=== PATIENT | male | born 1975 | race Hispanic/Latino ===

== ENCOUNTER → 2019-07-01 15:49 | Outpatient (CLI) | payer OTHER, SELFPAY ==
--- NOTE | 2019-07-01 | DI.US.S_ITS ---
PROCEDURE: US ABDOMEN LIMITED INDICATIONS: FATTY LIVER, ELEV LFT'S TECHNIQUE: Real-time focused scanning was performed of the abdomen, with image documentation. COMPARISON: None. FINDINGS: The liver demonstrates normal size. The liver demonstrates generalized increased echogenicity. This decreases ultrasound sensitivity for detection of hepatic masses. No findings of gallstones or sludge are seen. The gallbladder wall is not thickened, measuring 3 mm or less. No specific pericholecystic fluid is seen. The sonographic Hernández sign is negative. There is no biliary dilatation, the common bile duct measures 4 mm. The visualized pancreas is unremarkable. IMPRESSION: Fatty liver infiltration is seen, which is consistent with a given history. The gallbladder demonstrates a normal sonographic appearance. No biliary dilatation is seen. Dictated by: Joseph Foster M.D. on 07/02/2019 at 10:12 Approved by: Joseph Foster M.D. on 07/02/2019 at 10:13
== END ==
PROVIDERS: Visit Provider Physician Assistant
DX: K76.0 Fatty (change of) liver, not elsewhere classified (principal); R79.89 Other specified abnormal findings of blood chemistry
CPT/HCPCS: 76705

== ENCOUNTER → 2020-04-25 10:15 | Outpatient (CLI) | payer BC, SELFPAY ==
--- NOTE | 2020-04-25 10:16 | DI.RAD.S_ITS ---
PROCEDURE: XR LUMBAR SPINE MIN 4V COMPARISON: None. INDICATIONS: LOW BACK PAIN FINDINGS: PA, lateral, cone-down views, and bilateral oblique views of the lumbar spine were performed and demonstrate multilevel degenerative changes with anterior osteophytes seen at multiple levels. There is facet arthrosis at L4-5 and L5-S1 causing grade 1 anterolisthesis at L4-5. Vertebral body heights are maintained. Intervertebral disc spaces are normal. No pars defects are identified. The sacroiliac joints have degenerative changes bilaterally with sclerosis. The symphysis pubis is normal. Visualized bowel gas pattern demonstrates constipation. No fracture or dislocation. IMPRESSION: 1. Multilevel degenerative changes with no significant disc disease radiographically. 2. Facet arthrosis at L4-5 and L5-S1 with grade 1 anterolisthesis at L4-5. 3. Degenerative changes of the sacroiliac joints bilaterally. 4. Constipation. Dictated by: Navarro Villa M.D. on 04/25/2020 at 11:04 Approved by: Navarro Villa M.D. on 04/25/2020 at 11:08
== END ==
PROVIDERS: PCP Internal Medicine; Referring Provider Physical Medicine & Rehabilitation; Visit Provider Physical Medicine & Rehabilitation
DX: M54.5 Low back pain (principal); G89.29 Other chronic pain; M47.816 Spondylosis without myelopathy or radiculopathy, lumbar region; M47.817 Spondylosis without myelopathy or radiculopathy, lumbosacral region; M43.16 Spondylolisthesis, lumbar region; M46.1 Sacroiliitis, not elsewhere classified; K59.00 Constipation, unspecified
CPT/HCPCS: 72110

== ENCOUNTER → 2020-05-11 11:34 | Outpatient (CLI) | payer BC, SELFPAY ==
--- NOTE | 2020-05-11 11:35 | DI.MRI.S_ITS ---
PROCEDURE: MR LUMBAR SPINE WO CON INDICATIONS: progressive LBP TECHNIQUE: Noncontrast sagittal T1 spin echo and T2 fast echo, sagittal STIR, axial T1 and T2 fast spin echo through the lumbar spine. In cases with scoliosis, additional coronal T2 fast spin echo may be performed. COMPARISON: [facility], CR, XR LUMBAR SPINE MIN 4V, 04/25/2020, 10:12. FINDINGS: Image quality: This examination is limited by involuntary motion artifact. Alignment and Curvature: There is normal bony alignment. Bone Marrow: Marrow is of normal overall signal. No acute vertebral body compression fractures. Spinal Cord: Conus medullaris terminates at the T12-L1 level. Visualized cord demonstrates normal signal and size. Paraspinous Soft Tissues: No paravertebral masses. T12-L1: Normal appearance. L1-L2: The disc height and disk signal are well-preserved. Mild generalized disc bulge is seen. Mild to moderate bilateral neural foraminal narrowing can be seen. Mild central canal narrowing is seen. L2-L3: Mild loss of disc height is seen. Loss of disc signal is seen. Moderate disc bulge is seen, with a central disc protrusion. Mild facet joint hypertrophy is seen. There is at least moderate bilateral neural foraminal narrowing seen. There is a degree of compression seen upon the exiting nerve roots. Moderate to severe central canal narrowing is seen, as on series 5, image 16. L3-L4: The disc height is well-preserved. Loss of disc signal is seen at this level. Moderate disc bulge is seen, with a central disc protrusion. There is moderate to severe bilateral neural foraminal narrowing seen. There is a degree of compression seen upon the exiting nerve roots. Moderate to severe central canal narrowing is seen, as on series 5, image 21. L4-L5: The disc height is well-preserved. Loss of disc signal is seen at this level. Moderate generalized disc bulge is seen. Moderate prominent facet hypertrophy can be seen. There is moderate to severe bilateral neural foraminal narrowing seen, right worse than left. There is a degree of compression seen upon the exiting nerve roots. At least moderate central canal narrowing is seen at this level, as on series 5, image 27. L5-S1: The disc height is well preserved. The disc signal is relatively well preserved. Mild to moderate disc bulge is seen. There is moderate right-sided and [id number] left-sided facet hypertrophy seen. There is moderate to severe bilateral neural foraminal narrowing seen, right worse than left. There is a degree of compression seen upon the exiting nerve roots. Moderate central canal narrowing is seen. IMPRESSION: Multiple levels of premature lumbar spine degenerative change are seen, with multiple levels of exiting nerve root compression. Moderate to severe central canal narrowing can be seen at L2-3 and L3-4. Dictated by: Joseph Foster M.D. on 05/11/2020 at 11:40 Approved by: Joseph Foster M.D. on 05/11/2020 at 11:43
== END ==
PROVIDERS: PCP Internal Medicine; Referring Provider Physical Medicine & Rehabilitation; Visit Provider Physical Medicine & Rehabilitation
DX: M54.5 Low back pain (principal); M47.816 Spondylosis without myelopathy or radiculopathy, lumbar region; M48.061 Spinal stenosis, lumbar region without neurogenic claudication; E66.01 Morbid (severe) obesity due to excess calories
CPT/HCPCS: 72148

== ENCOUNTER → 2020-08-14 08:31 | Outpatient (CLI) | payer BC, SELFPAY ==
--- NOTE | 2020-08-14 08:34 | DI.RAD.S_ITS ---
PROCEDURE: XR KNEE RT 3V INDICATIONS: nontraumatic right knee pain, effusion? TECHNIQUE: 3 views of the knee were acquired. COMPARISON: None. FINDINGS: Bones: No fractures or dislocations. No suspicious bony lesions. Soft tissues: Small joint effusion. Possible thickening of the patellar tendon which would be better assessed on MRI. Prepatellar soft tissue edema. IMPRESSION: Small joint effusion. Prepatellar and infrapatellar soft tissue swelling. If the patient's pain or other symptoms persist, consider further evaluation with MRI Dictated by: Sam Woodard M.D. on 08/14/2020 at 9:40 Approved by: Sam Woodard M.D. on 08/14/2020 at 9:50
== END ==
PROVIDERS: PCP Internal Medicine; Referring Provider Nurse Practitioner Family; Visit Provider Nurse Practitioner Family
DX: M25.561 Pain in right knee (principal); M25.461 Effusion, right knee; M79.89 Other specified soft tissue disorders
CPT/HCPCS: 73562

== ENCOUNTER 2020-08-16 01:49 | Emergency (ER) | payer BC, SELFPAY ==
[2020-08-16 02:00] VITALS: BP 121/71; PULSE 90; RESP 20; TEMP 37.4; O2SAT 99
--- NOTE | 2020-08-16 02:00 | ED.GENADULT ---
HPI - General Adult General Chief complaint: Extremity Injury, Lower Stated complaint: right knee swollen and pain Time Seen by Provider: 08/16/20 01:51 Source: patient Mode of arrival: Ambulatory Limitations: no limitations History of Present Illness HPI narrative: Patient is a 45-year-old male who comes to the emergency department this morning for evaluation of continued right knee pain. He was seen in the walk-in clinic a couple days ago where he was evaluated for the right knee pain. He had an x-ray which showed no acute pathology. He denied any trauma. He states he was driving home a couple days ago when he started to have pain in his right knee. He states he did not fall on his knee. He does work as a mechanic welder and does spend quite a bit of time on his knees but the discomfort happened when he was driving home not all he was at work. He denies any fevers. Since his evaluation in the walk-in clinic he has been wearing a Jan bandage and also taking Tylenol and ibuprofen with only some improvement. He does have a referral to see Orthopedics however he states they have yet to call him to schedule an appointment. He has no history of gout. Related Data Home Medications Medication Instructions Recorded Confirmed aspirin 1 tab PO DAILY 02/27/20 05/07/20 citalopram 20 mg tablet 20 mg PO DAILY 02/27/20 05/07/20 hydrochlorothiazide 25 mg tablet 25 mg PO DAILY tab 02/27/20 05/07/20 Allergies Allergy/AdvReac Type Severity Reaction Status Date / Time No Known Drug Allergies Allergy Verified 08/14/20 07:34 Review of Systems Constitutional Constitutional: Denies fever(s) Musculoskeletal Musculoskeletal: Denies tingling Comments: Right knee pain Integumentary/Breasts Comments: Redness around the right knee Neurologic Neurologic: Denies tingling Hematologic/Lymphatic On Anticoagulants: No Allergic/Immunologic Allergic/Immunologic: Denies urticaria Patient History Medical History Anxiety (~2004) Carpal tunnel syndrome (~2007) Chronic back pain (~2010) Depression (~2004) Essential hypertension Facet arthropathy, lumbar Fatty liver History of adenomatous polyp of colon (~11/2019) Morbid obesity Shoulder pain (~2004) Sleep apnea (~2009) Spondylolisthesis at L4-L5 level TIA (transient ischemic attack) (~2017) Tuberculosis (~1999) Surgical History Anesthesia S/P shoulder surgery (~2008) S/P shoulder surgery (~2004) Family History Mother Diabetes mellitus Father Prostate cancer Brother Hypertension Brother Mental health problem Grandfather Alcoholism Grandmother History of heart attack Grandmother Cancer Social History Smoking Status: Never smoker Smoking Status: Never smoker Exam Initial Vital Signs Initial Vital Signs: Vital Signs Temperature 99.4 F 08/16/20 02:00 Pulse Rate 90 08/16/20 02:00 Respiratory Rate 20 08/16/20 02:00 Blood Pressure 121/71 08/16/20 02:00 Pulse Oximetry 99 08/16/20 02:00 Const General: cooperative Limitations: mental status not altered Skin Other: Patient has a very small area of redness over the medial aspect of the right knee. Extrem Other: Patient's right foot and right ankle and right calf are unremarkable. His right thigh and right hip were unremarkable. Patient has no tenderness to palpation over the right hamstring tendons. He does have a small joint effusion on the right compared to the left. He is able to bend his knee however he has discomfort with doing so. Procedures Joint Aspiration Joint Asp./Inject. 1: Time Out Performed: Yes Side of body: right Joint Aspirated: knee Ultrasound Guidance: No Skin Prep: Povidone-Iodine1% Local Anesthetic: lidocaine 1% and with epi Amount of anesthesia used (mL): 8 Needle Size Used: 18G Total fluid obtained (mL): 0 Patient Tolerated Procedure: Well Complications: none Course Orders Ordered: ED Orders 08/16/20 02:20 Basic Metabolic Panel Stat C-Reactive Protein Quant Stat Complete Blood Count AUTO DIFF Stat Erythrocyte Sedimentation Rate Stat Uric Acid Stat Discontinued Medications Hydromorphone HCl (Hydromorphone 1 Mg Inj) 1 mg IM NOW ONE Stop: 08/16/20 02:05 Last Admin: 08/16/20 02:13 Dose: 1 mg Documented by: Lidocaine/Epinephrine (Lidocaine 2% W/Epi Inj) 20 ml INJ INTRA-OP ONE Stop: 08/16/20 02:05 Last Admin: 08/16/20 02:14 Dose: 20 ml Documented by: Vital Signs Vital signs: Vital Signs - 8 hr 08/16/20 02:00 08/16/20 03:05 Temperature 99.4 F Pulse Rate 90 79 Respiratory Rate 20 16 Blood Pressure 121/71 153/80 H Pulse Oximetry 99 98 Medical Decision Making Lab Data Lab results reviewed: Yes I reviewed the patient's lab results. Result diagrams: 08/16/20 02:20 08/16/20 02:20 Labs: Lab Results 08/16/20 08/16/20 08/16/20 Range/Units 02:20 02:20 02:20 WBC 11.2 H (4.5-11.0) X10^3/uL RBC 4.67 (4.5-5.9) X10^6/uL Hgb 15.0 (13.5-17.5) g/dL Hct 43.6 (41-53) % MCV 93.5 (80-100) fL MCH 32.0 (26-34) PG MCHC 34.3 (30-36) % RDW 12.9 (11.6-14.8) % Plt Count 150 (150-400) X10^3/uL Neut % (Auto) 61.0 (50-75) % Lymph % (Auto) 22.9 L (25-40) % [place] % (Auto) 11.2 (3-14) % Eos % (Auto) 2.4 (2-4) % Baso % (Auto) 2.5 H (0-2) % Neut # (Auto) 6800 (2732-6650) /uL Lymph # (Auto) 2600 (3255-4744) /uL [place] # (Auto) 1200 H (0-900) /uL Eos # (Auto) 300 (0-450) /uL Baso # (Auto) 300 H (0-100) /uL RBC Morphology Normal morphology ESR 8 (0-15) MM/HR Sodium 138 (137-145) mmol/L Potassium 4.0 (3.4-5.1) mmol/L Chloride 107 (98-107) mmol/L Carbon Dioxide 27 (22-32) mmol/L BUN 16 (9-20) mg/dL Creatinine 0.74 (0.66-1.25) mg/dL Estimated GFR > 60.0 (>60) mL/min BUN/Creatinine Ratio 21.6 (6-22) Glucose 117 H (70-100) mg/dL Uric Acid 6.8 (3.5-8.5) mg/dL Calcium 8.7 (8.4-10.2) mg/dL C-Reactive Protein 2.1 H (<1.0) mg/dL MDM Narrative Medical decision making narrative: Patient returns to the emergency department today with continued right knee pain. He had an x-ray of his knee a couple days ago when he was evaluated at the walk-in clinic and this was unremarkable. He denies any trauma. I feel we can hold on repeat x-ray today. He is neurovascularly intact. He is afebrile. Has a leukocytosis of 11.2 which is 0.2 above the upper limit of normal. He does not have a left shift associated with this. He does have an elevated CRP but a normal ESR. His kidney function is unremarkable. He has a small area of redness over the medial aspect of the right knee which according to the walk-in clinic note this does not appear to be new. The patient also states this is not new. I have low suspicion for cellulitis. He does have a swelling of the right knee compared to the left however this appears to be more in the prepatellar region rather than the joint space. I discussed him the risks and benefits of a knee aspiration to include obtaining fluid for evaluation of infection versus gout and the risks to include infection. After this discussion he did provide his consent. I was unable to aspirate any joint fluid from knee there the prepatellar space nor the joint space itself. He felt much better after pain medication. You do feel that we could hold on further workup for now. He is on anti-inflammatories. We did discuss the use of compression and ice and elevation. He states that he has paperwork already for time off work. Informed him he needed to talk with his primary doctor about any FMLA paperwork. He was given return precautions. He expressed understanding and agreement. Discharge Plan Departure Patient Disposition: Home Clinical Impression: Knee pain Instructions: DI for Knee Pain Activity Restrictions/Additional Instructions: I recommend that when the office is open today you contact the [facility] [phone]. Until then continue with the Tylenol and ibuprofen. Keep your knee elevated. Keep ice on your knee. You can use the Jan bandage for comfort. Any FMLA paperwork needs to be completed by your primary provider. Return to the emergency department for any new or worsening symptoms Prescriptions: No Action aspirin 1 tab PO DAILY RF: 0 hydrochlorothiazide 25 mg tablet 25 mg PO DAILY RF: 0 citalopram 20 mg tablet 20 mg PO DAILY RF: 0 Referrals: Aki Zaragoza MD [Primary Care Provider] -
[2020-08-16] MEDS: HYDROMORPHONE 1 MG INJ IM (02:13)
[2020-08-16] MEDS: LIDOCAINE 2% W/EPI INJ 20 ML INJ (02:14)
[2020-08-16 02:37] LABS: Hematocrit 43.6 % (41-53); Lymphocytes Percent Auto 22.9 % (25-40); Mean Corpuscular HGB Conc 34.3 % (30-36); Mean Corpuscular Volume 93.5 fL (80-100); Red Blood Cell Count 4.67 X10^6/uL (4.5-5.9); Red Cell Distribution Width 12.9 % (11.6-14.8); White Blood Cell Count 11.2 X10^3/uL (4.5-11.0)
[2020-08-16 02:38] LABS: BUN Creatinine Ratio 21.6 (6-22); Basophils Percent Auto 2.5 % (0-2); Blood Urea Nitrogen 16 mg/dL (9-20); C-Reactive Protein Quant 2.1 mg/dL (<1.0); Calcium 8.7 mg/dL (8.4-10.2); Carbon Dioxide 27 mmol/L (22-32); Chloride 107 mmol/L (98-107); Eosinophils Percent Auto 2.4 % (2-4); Estimated Glomerular Filt Rate > 60.0 mL/min (>60); Glucose 117 mg/dL (70-100); HEMOLYSIS 20 (0-50); Lymphocytes Absolute Auto 2600 /uL (1100-4500); Monocytes Absolute Auto 1200 /uL (0-900); Monocytes Percent Auto 11.2 % (3-14); Neutrophils Absolute Auto 6800 /uL (1500-7000); Sodium 138 mmol/L (137-145); Uric Acid 6.8 mg/dL (3.5-8.5)
[2020-08-16 02:39] LABS: Add Manual Diff / Slide Review SLIDE REVIEW; Basophils Absolute Auto 300 /uL (0-100); Eosinophils Absolute Auto 300 /uL (0-450)
[2020-08-16 02:54] LABS: Platelet Count 150 X10^3/uL (150-400); RBC Morphology Normal Morphology
[2020-08-16 02:56] LABS: Erythrocyte Sedimentation Rate 8 MM/HR (0-15)
[2020-08-16 03:05] VITALS: BP 153/80; PULSE 79; RESP 16; O2SAT 98
== END 2020-08-16 03:07 | disposition home or self-care (01) ==
PROVIDERS: Emergency Provider Emergency Medicine; PCP Internal Medicine
DX: M25.561 Pain in right knee (principal)
CPT/HCPCS: 20610; 36415; 80048; 84550; 85025; 85651; 86140; 96372; 99283; J1170

== ENCOUNTER → 2021-01-04 11:25 | Outpatient (CLI) | payer BC, SELFPAY ==
[2021-01-04 12:07] LABS: COVID19 -Nasal RAPID Negative (Negative)
== END ==
PROVIDERS: PCP Internal Medicine; Visit Provider Physician Assistant
DX: Z20.822 Contact with and (suspected) exposure to COVID-19 (principal); R05 Cough; Z01.812 Encounter for preprocedural laboratory examination; R07.0 Pain in throat
CPT/HCPCS: 87635

== ENCOUNTER → 2021-01-04 11:41 | Outpatient (CLI) | payer BC, SELFPAY ==
--- NOTE | 2021-01-04 11:43 | DI.RAD.S_ITS ---
PROCEDURE: XR CHEST 2V INDICATIONS: Cough TECHNIQUE: 2 views of the chest were acquired. COMPARISON: [facility], , CHEST 2VW, 03/12/2012, 11:37. FINDINGS: Surgical changes and devices: None. Lungs and pleura: Lungs are clear. No pleural effusions or pneumothorax. Mediastinum: Mediastinal contours are normal. Heart size is normal. Bones and chest wall: No suspicious bony abnormalities. Soft tissues appear unremarkable. IMPRESSION: No acute cardiopulmonary process demonstrated radiographically. Dictated by: Jeff Ramos M.D. on 01/04/2021 at 12:10 Approved by: Jeff Ramos M.D. on 01/04/2021 at 12:10
== END ==
PROVIDERS: PCP Internal Medicine; Referring Provider Physician Assistant; Visit Provider Physician Assistant
DX: Z01.812 Encounter for preprocedural laboratory examination (principal); R05 Cough; R07.0 Pain in throat; Z20.822 Contact with and (suspected) exposure to COVID-19
CPT/HCPCS: 71046; 87635

== ENCOUNTER → 2022-06-03 07:32 | Outpatient (CLI) | payer BC, SELFPAY ==
[2022-06-03 08:54] LABS: Influenza A - CEPHEID Flu A NEGATIVE (NEGATIVE); Influenza B - CEPHEID Flu B NEGATIVE (NEGATIVE); Respiratory Syncytial Virus Negative (Negative)
[2022-06-03 08:55] LABS: COVID-19 CEPHEID 4-PLEX PCR Negative (Negative)
== END ==
PROVIDERS: PCP Internal Medicine; Visit Provider Physician Assistant Medical
DX: R05.1 Acute cough (principal)
CPT/HCPCS: 0241U

== ENCOUNTER → 2022-12-01 08:48 | Outpatient (CLI) | payer OTHER, SELFPAY ==
--- NOTE | 2022-12-01 | DI.US.S_ITS ---
PROCEDURE: US ABDOMEN LIMITED INDICATIONS: Fatty (change of) liver, not elsewhere classified TECHNIQUE: Real-time scanning was performed of the abdominal and retroperitoneal organs, with image documentation. COMPARISON: [facility], , US ABDOMEN LIMITED, 07/01/2019, 16:16. FINDINGS: Liver: Measures 15.1 cm in length. Increased in echogenicity. Gallbladder: Nondilated. No stones or sludge. Normal gallbladder wall thickness. No pericholecystic fluid. Negative sonographic Hernández's sign. Biliary ducts: Intrahepatic bile ducts are non-dilated. Extrahepatic bile duct caliber measures 4 mm. Normal is 6-7 mm or less in diameter, or 10 mm or less post-cholecystectomy. Pancreas: Not well seen. IMPRESSION: Increased hepatic echogenicity most consistent with hepatic steatosis. Other forms of hepatocellular disease could have similar appearance. No gallstones. Dictated by: Christopher Bullock M.D. on 12/01/2022 at 12:10 Approved by: Christopher Bullock M.D. on 12/01/2022 at 12:12
== END ==
PROVIDERS: PCP Internal Medicine; Referring Provider Internal Medicine; Visit Provider Internal Medicine
DX: K76.0 Fatty (change of) liver, not elsewhere classified (principal)
CPT/HCPCS: 76705

== ENCOUNTER → 2023-08-28 09:22 | Outpatient (CLI) | payer BC, SELFPAY | PROVIDERS: PCP Internal Medicine; Visit Provider Nurse Practitioner Family | DX: R10.9 Unspecified abdominal pain (principal) | CPT/HCPCS: 87086 ==

== ENCOUNTER → 2023-12-10 08:40 | Outpatient (CLI) | payer OTHER, SELFPAY ==
--- NOTE | 2023-12-10 08:42 | DI.RAD.S_ITS ---
PROCEDURE: XR LUMBAR SPINE MIN 4V INDICATIONS: Back pain TECHNIQUE: Five views of the lumbar spine COMPARISON: [facility], CR, XR LUMBAR SPINE MIN 4V, 04/25/2020, 10:12. FINDINGS: Bones: Trace anterolisthesis of L4 on L5. Vertebral body heights are well maintained. Mild overall spondylosis with facet arthropathy, osteophytes, disc space height loss. No definite pars defects on oblique views, although evaluation is limited by bowel gas and degenerative changes. Soft tissues: No suspicious calcifications. Prominent sigmoid gas. IMPRESSION: Mild overall degenerative changes. Trace L4 on L5 anterolisthesis. If there is high concern for further derangement, consider MRI evaluation. Dictated by: Timothy Vaca M.D. on 12/10/2023 at 12:55 Approved by: Timothy Vaca M.D. on 12/10/2023 at 12:56
--- NOTE | 2023-12-10 08:42 | DI.RAD.S_ITS ---
PROCEDURE: XR THORACIC SPINE 3V INDICATIONS: Back pain TECHNIQUE: 3 views of the thoracic spine were acquired. COMPARISON: None. FINDINGS: Bones: Vertebral body heights are well maintained. Minimal degenerative changes. No traumatic subluxation. Soft tissues: No suspicious calcifications. IMPRESSION: Minimal degenerative changes. No acute radiographic abnormality. If there is high concern for further derangement, consider MRI evaluation. Dictated by: Timothy Vaca M.D. on 12/10/2023 at 12:54 Approved by: Timothy Vaca M.D. on 12/10/2023 at 12:55
== END ==
PROVIDERS: PCP Internal Medicine; Referring Provider Nurse Practitioner Family; Visit Provider Nurse Practitioner Family
DX: M47.816 Spondylosis without myelopathy or radiculopathy, lumbar region (principal); M54.9 Dorsalgia, unspecified
CPT/HCPCS: 72072; 72110

== ENCOUNTER 2024-01-11 10:45 | Emergency (ER) | payer OTHER, SELFPAY ==
[2024-01-11 11:16] VITALS: BP 150/103; PULSE 80; RESP 16; TEMP 35.9; O2SAT 97; BMI 51.7
--- NOTE | 2024-01-11 11:39 | DI.RAD.S_ITS ---
PROCEDURE: XR KNEE LT 3V INDICATIONS: non-traumatic left knee pain TECHNIQUE: 3 views of the knee were acquired. COMPARISON: [facility], CR, XR KNEE RT 3V, 08/14/2020, 8:34. FINDINGS: Bones: No fractures or dislocations. No suspicious bony lesions. Soft tissues: No joint effusion. No suspicious soft tissue calcifications. IMPRESSION: No acute bony abnormality or significant effusion. No significant osteoarthritis. Dictated by: Jose A Hoffman M.D. on 01/11/2024 at 11:22 Approved by: Jose A Hoffman M.D. on 01/11/2024 at 11:23
--- NOTE | 2024-01-11 12:04 | ED.EXTPRO ---
HPI - Extremity Problem General Chief complaint: Extremity Problem,Nontraumatic Stated complaint: bad pain in lt knee Time Seen by Provider: 01/11/24 11:41 Source: patient and family Mode of arrival: Ambulatory History of Present Illness HPI Narrative: 48-year-old male who does have history of gout but is always had it in his big toe here for evaluation of less than 24 hours of left knee pain. He states that overnight he woke up during the night. Started to have pain in his left knee. No trauma. No fevers. He states that it does not feel like gout. No twisting injury. He states that his knee is in the least amount of pain when he is it slightly bent. It is worse when he walks and bends his knee. No other joint pain. No skin changes over the area. Related Data Home Medications Medication Instructions Recorded Confirmed citalopram 20 mg tablet 20 mg PO DAILY 02/27/20 12/10/23 hydrochlorothiazide 25 mg tablet 25 mg PO DAILY 02/27/20 12/10/23 losartan PO 08/28/23 12/10/23 Previous Rx's Medication Instructions Recorded cyclobenzaprine 5 mg tablet 5 mg PO TID PRN muscle spasm #20 08/28/23 tabs cephalexin 500 mg capsule 1,000 mg (2 x 500 mg) PO BID 01/10/24 Cellulitis 7 days #28 caps hydrocodone 5 mg-acetaminophen 325 1 tab PO Q8H PRN pain #10 tabs 01/11/24 mg tablet Allergies Allergy/AdvReac Type Severity Reaction Status Date / Time No Known Drug Allergies Allergy Verified 01/10/24 10:51 Review of Systems Review of Systems Narrative: See HPI Patient History Medical History Spondylolisthesis at L4-L5 level Facet arthropathy, lumbar History of adenomatous polyp of colon (~11/2019) Fatty liver Sleep apnea (~2009) Anxiety (~2004) TIA (transient ischemic attack) (~2017) Shoulder pain (~2004) Carpal tunnel syndrome (~2007) Tuberculosis (~1999) Chronic back pain (~2010) Morbid obesity Depression (~2004) Essential hypertension Surgical History Anesthesia S/P shoulder surgery (~2004) S/P shoulder surgery (~2008) Family History Mother Diabetes mellitus Father Prostate cancer Brother Hypertension Brother Mental health problem Grandfather Alcoholism Grandmother History of heart attack Grandmother Cancer Social History Smoking Status: Never smoker Smoking Status: Never smoker alcohol intake frequency: a few times a week Substance Use Type: does not use Exam Initial Vital Signs Initial Vital Signs: Vital Signs Temperature 96.6 F L 01/11/24 11:16 Pulse Rate 80 01/11/24 11:16 Respiratory Rate 16 01/11/24 11:16 Blood Pressure 150/103 H 01/11/24 11:16 Pulse Oximetry 97 01/11/24 11:16 Oxygen Delivery Method Room Air 01/11/24 11:16 Skin General: no rashes or lesions noted Neuro Sensory Exam: no sensory deficits noted Extrem Other: Patient has discomfort over the quadriceps tendon. There was no deficit in the tendon noted. A small amount of swelling in this area. No tenderness along the hamstring tendons. No tenderness along the patellar tendon. Minimal tenderness over the patella itself. No tenderness along the medial and lateral joint line. Course Orders Ordered: ED Orders 01/11/24 11:39 XR knee LT 3V Stat Discontinued Medications Hydrocodone Bitart/Acetaminophen (Hydrocodone/Acet 5/325 Tablet) 1 tab PO NOW ONE Stop: 01/11/24 12:05 Ketorolac Tromethamine (Ketorolac 30 Mg/Ml Vial) 30 mg IM NOW ONE Stop: 01/11/24 12:05 Vital Signs Vital signs: Vital Signs - 8 hr 01/11/24 11:16 Temperature 96.6 F L Pulse Rate 80 Respiratory Rate 16 Blood Pressure 150/103 H Pulse Oximetry 97 Oxygen Delivery Method Room Air MDM - Extremity (Nontraumatic) Imaging Data Extremity x-ray #1: My Impression: No fractures no dislocations noted MDM Narrative Medical decision making narrative: Patient's knee does have a small amount of swelling over the suprapatellar bursa area worse his where he was having the discomfort. Low suspicion for quadriceps tendon. His exam is not consistent with septic joint. Not consistent with gout. Not consistent with cellulitis. No fractures or dislocations noted on the x-rays. I suspect that this is bursitis. I discuss this with him. Conservative measures for now with pain medication and rest and ice. Patient was given return precautions and follow-up instructions. He expressed understanding and agreement. Discharge Plan Departure Patient Disposition: Home Clinical Impression: Bursitis of left knee Instructions: DI for Bursitis, How To Perform RICE (Rest, Ice, Compress, Elevate) Activity Restrictions/Additional Instructions: I do recommend that you rest your knee as much as possible. You can keep it in the position of comfort like we discussed. Icing your knee can be helpful as well. Continue to take anti-inflammatory such as Motrin/ibuprofen. You can purchase this [id number]. Contact your primary doctor for a follow-up. Return to the emergency department for new symptoms. Prescriptions: New hydrocodone-acetaminophen 5-325 mg tablet 1 tab PO Q8H PRN (Reason: pain) Qty: 10 0RF No Action losartan PO cyclobenzaprine 5 mg tablet 5 mg PO TID PRN (Reason: muscle spasm) Qty: 20 0RF cephalexin 500 mg capsule 1,000 mg PO BID 7 Days Qty: 28 0RF hydrochlorothiazide 25 mg tablet 25 mg PO DAILY citalopram 20 mg tablet 20 mg PO DAILY Referrals: Aki Zaragoza MD [Primary Care Provider] - Stand Alone Forms: Patient Portal/API, Work Release Note
[2024-01-11] MEDS: HYDROCODONE/ACET 5/325 TABLET 1 TAB PO (12:14)
[2024-01-11] MEDS: KETOROLAC 30 MG/ML VIAL IM (12:15)
[2024-01-11 12:23] VITALS: BP 145/93; PULSE 77; RESP 20; O2SAT 98
== END 2024-01-11 12:25 | disposition home or self-care (01) ==
PROVIDERS: Emergency Provider Emergency Medicine; PCP Internal Medicine
DX: M70.52 Other bursitis of knee, left knee (principal)
CPT/HCPCS: 73562; 96372; 99283; 99284; J1885

== ENCOUNTER → 2025-03-18 11:31 | Outpatient (CLI) | payer OTHER, SELFPAY ==
[2025-03-18 11:55] LABS: Appearance Urine UA CLEAR; Bilirubin Urine UA NEGATIVE (NEGATIVE); Color Urine UA YELLOW; Glucose Urine UA NEGATIVE (Negative); Ketones Urine UA NEGATIVE (NEGATIVE); Leukocyte Esterase Urine UA NEGATIVE (NEGATIVE); Nitrite Urine UA NEGATIVE (Negative); Occult Blood Urine UA NEGATIVE (Negative); Protein Urine UA NEGATIVE (Negative); Specific Gravity Urine UA <=1.005 (1.000-1.035); Urobilinogen Urine UA 0.2 E.U./dL (0.2); pH Urine UA 6.0 (4.5-8.0)
[2025-03-18 12:05] LABS: Culture Indicated Urine Cult Not Indicated
[2025-03-18 12:13] LABS: Add Manual Diff / Slide Review NO; Hematocrit 43.2 % (41-53); Hemoglobin 15.3 g/dL (13.5-17.5); Lymphocytes Absolute Auto 1700 /uL (1100-4500); Mean Corpuscular HGB Conc 35.3 % (30-36); Mean Corpuscular Hemoglobin 32.7 PG (26-34); Mean Corpuscular Volume 92.6 fL (80-100); Platelet Count 178 X10^3/uL (150-400)
[2025-03-18 12:22] LABS: Hemoglobin A1C% w Est Avg Glu 5.8 % (4.0-6.0)
[2025-03-18 12:32] LABS: Alanine Aminotransferase 80 IU/L (<50); Albumin 4.7 g/dL (3.5-5.0); Albumin Globulin Ratio 1.3 (1.0-2.8); Alkaline Phosphatase 96 U/L (38-126); Blood Urea Nitrogen 13 mg/dL (9-20); Calcium 9.0 mg/dL (8.4-10.2); Carbon Dioxide 26 mmol/L (22-32); Chloride 99 mmol/L (98-107); Cholesterol 199 mg/dL (140-199); Estimated Glomerular Filt Rate > 60 mL/min (>60); Globulin 3.6 g/dL (1.7-4.1); Glucose 113 mg/dL (70-99); HDL Cholesterol 44 mg/dL (40-60); HEMOLYSIS < 15 (0-50); Potassium 4.1 mmol/L (3.4-5.1); Sodium 135 mmol/L (137-145); Total Protein 8.3 g/dL (6.3-8.2); Triglycerides 176 mg/dL (35-150); Uric Acid 8.2 mg/dL (3.5-8.5)
[2025-03-18 13:02] LABS: Prostate Specific Antigen 0.973 ng/mL (0.10-4.00)
[2025-03-18 13:03] LABS: Thyroid Stimulating Hormone 1.04 uIU/mL (0.47-4.68)
== END ==
PROVIDERS: Referring Provider Naturopath; Visit Provider Naturopath
DX: Z00.00 Encounter for general adult medical examination without abnormal findings (principal); I10 Essential (primary) hypertension; R53.83 Other fatigue; M10.9 Gout, unspecified; Z12.5 Encounter for screening for malignant neoplasm of prostate; Z20.820 Contact with and (suspected) exposure to varicella; Z80.42 Family history of malignant neoplasm of prostate
CPT/HCPCS: 36415; 80053; 80061; 81001; 83036; 84153; 84443; 84550; 85025; 86787